=== PATIENT | female | born 1985 | race Caucasian/White ===

== ENCOUNTER 2021-05-31 17:35 | Emergency (ER) | payer OTHER ==
[~2021-05-31 17:35] MED LIST: ACETAMINOPHEN500 M1 PO; COLACE100 MG PO; MOTRIN600 MG PO; NORCO 5-325 TA1 EACH PO; OXY-IR 5MG5 MG PO; SKELAXIN800 MG PO; TESSALON PERLE100 MG PO; VOLTAREN **OUT75 MG PO; ZOFRAN8 MG PO
[2021-05-31] MEDS ORDERED: CYCLOBENZAPRINE10 MG PO (19:46)
[2021-05-31] MEDS ORDERED: IBUPROFEN800 MG PO (19:46)
[2021-05-31] MEDS ORDERED: NORCO 5-325 TA1 EACH PO (19:46)
== END 2021-05-31 20:08 | disposition home or self-care (01) ==
LOC: FER 17:35
DX: S16.1XXA Strain of muscle, fascia and tendon at neck level, initial encounter (principal); S70.02XA Contusion of left hip, initial encounter; S80.02XA Contusion of left knee, initial encounter; S40.012A Contusion of left shoulder, initial encounter; F17.210 Nicotine dependence, cigarettes, uncomplicated; W06.XXXA Fall from bed, initial encounter; Y92.009 Unspecified place in unspecified non-institutional (private) residence as the place of occurrence of the external cause
CPT/HCPCS: 99283

== ENCOUNTER 2021-12-03 19:30 | Emergency (ER) | payer OTHER ==
[~2021-12-03 19:30] MED LIST changes: +CYCLOBENZAPRINE10 MG PO; +IBUPROFEN800 MG PO
[2021-12-03] MEDS ORDERED: MEDROL 4MG DOSEP4 MG PO (22:16)
[2021-12-03] MEDS ORDERED: CYCLOBENZAPRINE10 MG PO (22:16)
== END 2021-12-03 22:25 | disposition home or self-care (01) ==
LOC: FER 19:30
DX: S13.4XXA Sprain of ligaments of cervical spine, initial encounter (principal); S23.3XXA Sprain of ligaments of thoracic spine, initial encounter; S33.5XXA Sprain of ligaments of lumbar spine, initial encounter; W10.9XXA Fall (on) (from) unspecified stairs and steps, initial encounter; Y92.009 Unspecified place in unspecified non-institutional (private) residence as the place of occurrence of the external cause
CPT/HCPCS: 70450; 72125; 72128; 72131; 73030; 73502

== ENCOUNTER 2022-05-01 10:52 | Emergency (ER) | payer OTHER ==
[~2022-05-01 10:52] MED LIST changes: +MEDROL 4MG DOSEP4 MG PO
== END 2022-05-01 12:10 | disposition home or self-care (01) ==
LOC: FER 10:52
DX: U07.1 COVID-19 (principal); F17.210 Nicotine dependence, cigarettes, uncomplicated; Z28.310 Unvaccinated for COVID-19
CPT/HCPCS: 71045; U0002